=== PATIENT | male | born 1960 | race Two or more races ===

== ENCOUNTER 2016-06-05 22:16 | Emergency (ER) | payer OTHER ==
[~2016-06-05] VITALS: Ht 172.7 cm; Wt 66.2 kg
[2016-06-05 22:35] VITALS: BP 130/89
[2016-06-05] MEDS ORDERED: ABILIFY2 MG ORAL (22:36)
[2016-06-05] MEDS ORDERED: PROZAC10 MG ORAL (22:36)
[2016-06-05] MEDS ORDERED: Acetaminophen 500mg (ES) tab ORAL ONE (23:00)
[2016-06-06 00:20] VITALS: BP 128/83
[2016-06-06] MEDS ORDERED: IBUPROFEN600 MG ORAL (00:22)
[2016-06-06] MEDS ORDERED: CYCLOBENZAPRINE10 MG ORAL (00:22)
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
== END 2016-06-06 00:20 | disposition home or self-care (01) ==
LOC: EMR 23:07
DX: S16.1XXA Strain of muscle, fascia and tendon at neck level, initial encounter (principal); S09.90XA Unspecified injury of head, initial encounter; F31.9 Bipolar disorder, unspecified; J45.909 Unspecified asthma, uncomplicated; Y04.8XXA Assault by other bodily force, initial encounter; Y92.199 Unspecified place in other specified residential institution as the place of occurrence of the external cause; Y99.8 Other external cause status
CPT/HCPCS: 70450; 72125; 99284